=== PATIENT | female | born 1935 | race Caucasian/White ===

== ENCOUNTER 2023-04-22 11:14 | Observation (INO) | payer MEDICARE, BC ==
--- NOTE | 2023-04-22 11:47 | ED Physician Documentation ---
History of Present Illness - Stated complaint Stated Complaint: HIGH BP/VISION ISSUE - Chief complaint Chief Complaint: Heent - Additonal information Additional information: 87-year female presents emergency department for evaluation of vision changes and concerns of elevated blood pressure. Traveling to [facility] from [place]. States that on 08 April when she left [place] she had a mild headache that she did not put much thought into. On 15 April she had just finished brushing her teeth and when she looked into the mirror she states that her vision felt like she was looking through a slot machine. She did not have any l oss of vision. The slot machine sensation lasted 2 to 3 minutes before dissipating but since then she has had a color disturbance in both her eyes where she sees outlines and halos of blues and greens. She no longer has a headache. At this time she denies any chest pain, shortness of air, feeling lightheaded, dizzy. No falls or trauma. FAST exam is negative. NIHSS is 0. She did speak to her primary care doctor who advised her to come to the emergency department. Denies any history of VT, CVA or atrial fibrillation. Past medical history most significant for hypertension and hypercholesterolemia. She is not anticoagulated. No aspirin. Review of Systems Constitutional: denies: Fever Eyes: reports: Other (Visual halos) Ears: reports: Reviewed and negative Cardiac: reports: Reviewed and negative Respiratory: reports: Reviewed and negative GI: reports: Reviewed and negative : reports: Reviewed and negative Skin: reports: Reviewed and negative Musculoskeletal: reports: Reviewed and negative Neurologic: reports: Headache. denies: Generalized weakness, Focal weakness, Difficulty speaking, Syncope, Seizure, Altered mental status, Head injury, LOC Psychiatric: reports: Reviewed and negative PD PAST MEDICAL HISTORY - Allergies Allergies/Adverse Reactions: Allergies Allergy/AdvReac Type Severity Reaction Status Date / Time No Known Drug Allergies Allergy Verified 04/22/23 11:27 PD ED PE NORMAL - General General: Alert and oriented X 3, No acute distress, Well developed/nourished - HEENT HEENT: Atraumatic, PERRL, EOMI, Moist mucous membranes - Cardiac Cardiac: RRR, Strong equal pulses - Abdomen Abdomen: Normal bowel sounds, Soft, Non tender, Non distended - Neuro Neuro: Alert and oriented X 3, mold filling operator 2-12 intact Eye Opening: Spontaneous Motor: Obeys Commands Verbal: Oriented GCS Score: 15 - Psych Psych: Normal mood Results - Vitals Vitals: Vital Signs - 24 hr 04/22/23 04/22/23 11:17 13:19 Temperature 36.9 C Heart Rate 78 65 Respiratory 18 19 Rate Blood Pressure 150/77 H 142/84 H O2 Saturation 94 98 Oxygen O2 Source Room air - EKG (time done) 1149 EKG releavant findings:: EKG personally interpreted by author of this note. Relevant findings are: Rate: Rate (enter#) (69) Rhythm: NSR [place]: Anterior hemiblock Intervals: Normal WA. No: Prolonged QT QRS: LVH Ischemia: Q waves (v2-v5) Compare to prior EKG: Old EKG unavailable Computer interpretation: Agree with computer - Labs Labs: Laboratory Tests 04/22/23 04/22/23 04/22/23 11:49 11:49 11:49 WBC 7.4 RBC 4.57 Hgb 13.9 Hct 43.2 MCV 94.5 MCH 30.4 MCHC 32.2 RDW 13.8 Plt Count 346 MPV 9.9 Neut # (Auto) 4.3 Lymph # (Auto) 1.8 [place] # (Auto) 1.0 Eos # (Auto) 0.2 Baso # (Auto) 0.0 Absolute Nucleated RBC 0.00 Nucleated RBC % 0.0 PT 11.9 INR 1.1 Sodium 139 Potassium 3.9 Chloride 106 Carbon Dioxide 28 Anion Gap 5.0 L BUN 33 H Creatinine 0.9 Estimated GFR (MDRD) 59 L Glucose 117 H Calcium 9.6 Total Bilirubin 0.4 AST 13 ALT 12 Alkaline Phosphatase 74 Total Protein 7.3 Albumin 3.7 Globulin 3.6 Albumin/Globulin Ratio 1.0 Lipase 61 TSH 1.55 - Rads (name of study) cxr Relevant Findings:: Final report received (No acute cardiopulmonary findings) MRI brain Relevant Findings:: Final report received PD Medical Decision Making - ED course Complexity details: reviewed results, re-evaluated patient, considered differential, d/w patient ED course: 87-year-old female who is traveling to [facility] from [place] presents to the emergency department for 1 week of visual hallucinations and a brief episode of vision sensation that she is looking through a slot machine. The symptoms occurred on April 15 and the slot machine sensations abated after 2 to 3 minutes but she has persistently had since then, visual hallucination in both eyes where things are outlined in yellow and blue. There is no diplopia or loss of vision. All of the symptoms were preceded by a brief headache on April 08 when she was leaving [place], The headache was very brief and did not persist and has not returned since then. On presentation to the emergency department she is alert and rather well- appearing. FAST exam is negative. Her NIHSS is 0. Extraocular movements are preserved without any palsies noted. Subsequently I did obtain an EKG which per my interpretation was nonischemic. CBC, electrolytes and thyroid were all without acute worrisome findings. 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 The location of the subacute infarct would not seemingly be causative of her visual hallucinations. I did briefly speak on the phone with Dr. Sergio Campos an continuous improvement analyst who also stated that this is almost certainly not eye based given that the symptoms are present in both eyes. diferential still includes v isual migraine. interestingly no occipital infarct is seen on MRI Subsequently have spoken with Dr. Cummings who will bring the patient in for further work-up of the subacute infarct which will likely include an echo and carotid Dopplers. I discussed this finding and plan with the patient and her daughter and they are in agreement. Departure - Departure Disposition: ED Place in Observation Clinical Impression: Abnormal EKG, Acute stroke due to ischemia, Visual hallucinations Condition: Stable Comments: Your EKG today showed that you are in sinus rhythm. It however does have "Q waves" in the anterior leads which can be signs that you may have had a silent heart attack at some point in the past. When you return to [place] you do need to discuss this with your primary care doctor as you would likely benefit from referral to a project account manager. If you have not already been seen by one Forms: PCP List NIHSS - Time Time: 11:40 - Level of Consciousness Level of consciousness: (0) Alert, Keenly responsive LOC Questions: (0) Answers both Q's correct LOC Commands: (0) Performs both correctly - Gaze Best Gaze: (0) Normal - Visual Visual: (0) No loss - Facial Palsy Facial Palsy: (0) Normal, symmetrical movement - Motor Arms (both separate) Motor Arm (right): (0) No drift Motor Arm (left): (0) No drift - Motor Legs (both separate) Motor Leg (right): (0) No drift Motor Leg (left): (0) No drift - Limb Ataxia Limb Ataxia: (0) Absent - Sensory Sensory: (0) Normal - Best Language Best Language: (0) No aphasia - Dysarthria Dysarthria: (0) Normal - Extinction and Inattention (formally neg Extinction and inattention: (0) No abnormality - Total Score/Results Total Score/Result: 0
[2023-04-22 11:55] LABS: BASOPHILS % (AUTO) 0.3 %; EOSINOPHILS # (AUTO) 0.2 10^3/uL (0.0-0.7); EOSINOPHILS % (AUTO) 3.3 %; HCT - HEMATOCRIT 43.2 % (37.0-47.0); HGB - HEMOGLOBIN 13.9 g/dL (12.0-16.0); LYMPHOCYTES # (AUTO) 1.8 10^3/uL (1.5-3.5); LYMPHOCYTES % (AUTO) 24.9 %; MEAN CORPUSCULAR HEMOGLOBIN 30.4 pg (27.0-31.0); MEAN CORPUSCULAR HGB CONC 32.2 g/dL (32.0-36.0); MEAN CORPUSCULAR VOLUME 94.5 fL (81.0-99.0); MEAN PLATELET VOLUME 9.9 fL (7.9-10.8); NEUTROPHILS # (AUTO) 4.3 10^3/uL (1.5-6.6); NEUTROPHILS % (AUTO) 58.4 %; PLT - PLATELET COUNT 346 10^3/uL (130-450); RED BLOOD COUNT 4.57 10^6/uL (4.20-5.40); RED CELL DISTRIBUTION WIDTH 13.8 % (12.0-15.0); WHITE BLOOD COUNT 7.4 x10^3/uL (4.8-10.8)
[2023-04-22 12:03] LABS: INR 1.1 (0.8-1.2); PT - PROTHROMBIN TIME 11.9 secs (9.9-12.6)
[2023-04-22 12:10] LABS: ALBUMIN 3.7 g/dL (3.2-5.5); BILIRUBIN,TOTAL 0.4 mg/dL (0.2-1.0); CALCIUM 9.6 mg/dL (8.5-10.3); CREATININE 0.9 mg/dL (0.6-1.3); POTASSIUM 3.9 mmol/L (3.5-4.5); TOTAL PROTEIN 7.3 g/dL (6.4-8.9)
[2023-04-22 12:23] LABS: THYROID STIMULATING HORMONE 1.55 uIU/mL (0.34-5.60)
--- NOTE | 2023-04-22 12:49 | XRAY Report ---
PROCEDURE: Chest 1 View X-Ray INDICATIONS: Chest Pain TECHNIQUE: One view of the chest was acquired. COMPARISON: None. FINDINGS: Surgical changes and devices: None. Lungs and pleura: Prominent right hilum, indeterminate, possibly prominent vascular structures. No d ense consolidation or pleural effusion. Suspected basal scarring on the left. Mediastinum: Mediastinal contours appear normal. Heart size is normal. Bones and chest wall: No suspicious bony lesions. Overlying soft tissues appear unremarkable. IMPRESSION: No acute radiographic abnormality. Suspected scarring at the left lung base. Indeterminate prominent appearance of the right hilum. Reviewed by: Khanh Patten MD on 04/22/2023 12:48 PM PDT Approved by: Khanh Patten MD on 04/22/2023 12:48 PM PDT Station ID: [id number]
--- NOTE | 2023-04-22 14:01 | MRI Report ---
PROCEDURE: BRAIN WO INDICATIONS: visual aura > 1 week TECHNIQUE: Noncontrast axial T1 spin echo, axial T2 fast spin echo, sagittal and axial FLAIR, coronal T2 fast sp in echo, axial gradient echo, axial diffusion and ADC through the brain. COMPARISON: None. FINDINGS: Image quality: Motion artifact is noted. CSF Spaces: Basal cisterns are patent. No extra-axial fluid collections. Ventricles are normal in size and shape. Brain: Within the posterior aspect of the left parietal lobe, there is a focus of abnormal diffusion weighted signal seen, as on series 12 image 40 that measures 8 mm. Associated dark signal can be see n upon the ADC map. Developing T2-weighted signal can be seen at this site. No intracranial masses or hemorrhage. Longoria/white matter interface is normal. Brainstem appears norm al. No chronic ischemic insults. Normal intravascular flow voids are present. Prominent perivascul ar spaces are incidentally noted. Skull and face: Calvarium has normal marrow signal. Orbits appear normal. Incidental note is made of bilateral lens replacements. Sinuses: Sinuses and mastoids are clear. IMPRESSION: 8 mm focus of subacute infarction seen involving the posterior aspect of the left parietal lobe. Reviewed by: José Miguel Prabhakar MD on 04/22/2023 1:00 PM KASANDRA Approved by: José Miguel Prabhakar MD on 04/22/2023 1:00 PM KASANDRA Station ID: [id number]
[2023-04-22] MEDS ORDERED: SODIUM CHLORIDE FLUSH 0.9% 10 ML SYRINGE IVP PRN (15:07)
[2023-04-22] MEDS ORDERED: ONDANSETRON 4 MG/2 ML VIAL IVP PRN (15:07)
[2023-04-22] MEDS ORDERED: ACETAMINOPHEN 325 MG TABLET PO PRN (15:07)
--- NOTE | 2023-04-22 15:21 | HISTORY & PHYSICAL EXAMINATION ---
Chief Complaint - Chief Complaint Chief Complaint: Vision change History of Present Illness - Admitted From Admitted From:: ED - History Obtained From History obtained from: ED provider and the patient - History of Present Illness HPI Comment/Other: This is an 87-year-old female with a Hx of HTN, who is visiting here from [place]. Approximately 2 weeks ago, during the car trip, while in [place], she had a headache which is not normal for her. Approximately a week ago, in OR she had an episode of abnormal vision for 3 minutes that she described as if she was looking at a slot machine with red and black colors and bright lights. Ever since then she is more fatigued then normal. and she needs daytime naps. About 2 days after the slot machine, she is seeing large red and black spots on furniture or ceilings, only if she staeres at it, worse in the L eye than the R. She denies a history of glaucoma, amiodarone use, or chemotherapy use. She noticed that her blood pressure was somewhat higher recently. She called her PCP a few days ago and described these sx who advised that she go to an ER. Se got to [facility] today and she was brought to the ER here. Her blood pressure was not hypertensive. Her neuro exam was unremarkable. She did undergo an MRI of the head that showed a subacute left parietal stroke. The ED provider reached out to the shank archer who felt that because the symptoms are in both eyes, this was not an ocular or retinal problem. The ED provider then spoke to me about this patient. She will be placed into Observation status to evaluate for causes of a stroke. History - Past Medical History Cardiovascular: reports: Hypertension, High cholesterol Respiratory: reports: None Neuro: reports: None Endocrine/Autoimmune: reports: None TRAFFIC ADMINISTRATOR: reports: None : reports: None HEENT: reports: None Psych: reports: None Musculoskeletal: reports: None Derm: reports: None - Past Surgical History General: reports: Appendectomy Ortho: reports: Knee replacement (bilat), Rotator cuff repair (bilat), Other (R ankle rods & pins) /TRAFFIC ADMINISTRATOR: reports: Hysterectomy - Family & Social History Living arrangement: At home Living Situation: With family Social History Notes: 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. She never smoked. She drinks no alcohol. She uses no illicit drugs. - Substance History Use: Uses substance without health or social issues: NONE Meds/Allgy - Home Medications Home Medications: Ambulatory Orders Medication Instructions Recorded Confirmed Atorvastatin [Lipitor] 10 mg PO DAILY 04/22/23 Celecoxib [Celebrex] 200 mg PO DAILY 04/22/23 Losartan/Hydrochlorothiazide 1 tab PO DAILY 04/22/23 [Hyzaar 50-12.5 Tablet] Metoprolol Succinate [Toprol Xl] 25 mg PO ONCE 04/22/23 - Allergies Allergies/Adverse Reactions: Allergies Allergy/AdvReac Type Severity Reaction Status Date / Time No Known Drug Allergies Allergy Verified 04/22/23 11:27 Review of Systems - Eyes Eyes: reports: Spots in vision - Musculoskeletal Musculoskeletal: reports: Other (LBP and R shoulder pain) - Neurological Neurological: reports: Other (Vision problems as in HPI) Exam - Vital Signs Vital Signs: Vital Signs x48h Temp Pulse Resp BP Pulse Ox 04/22/23 13:19 65 19 142/84 H 98 04/22/23 11:17 36.9 C 78 18 150/77 H 94 - Physical Exam General Appearance: positive: No acute distress, Alert Eyes Bilateral: positive: Normal inspection, EOMI ENT: positive: ENT inspection nml, No signs of dehydration Neck: positive: Nml inspection, No JVD, Other (No carotid bruits) Respiratory: positive: No respiratory distress, Breath sounds nml Cardiovascular: positive: Regular rate & rhythm, No murmur Abdomen: positive: Non-tender, Nml bowel sounds, No distention Skin: positive: Warm, Dry, Other (Well tanned, heavily wrinkled skin) Extremities: positive: Non-tender, No pedal edema Neurologic/Psychiatric: positive: Oriented x3, Motor nml, Sensation nml Conclusion/Plan - Problem List (1) Acute stroke due to ischemia Conclusion/Plan: Her persistent symptom is the abnormal colors in her vision. The brain imaging shows a subacute stroke in the left parietal region. The ED provider told me that there was no neuro stroke consult done when she was in the ED Plan: We will obtain angio of the brain using MRA. We will obtain carotid Dopplers to evaluate for plaque We will obtain an Echo with bubble study to look for cardiac source of embolus or PFO Place on telemetry to watch for A-fib Neuro-checks q4h We will start her on daily baby aspirin and daily Plavix. Fasting lipid panel also ordered. Target LDL be less than 70 and patient with a stroke. Will request PT and OT evals to see if her sx impact her ADLs (2) HTN (hypertension) Conclusion/Plan: The patient was on lisinopril/HCTZ as well as Toprol for her BP control Plan: Low sodium diet ordered We will allow for permissive hypertension We will resume her BP meds after the list is reconciled and when appropriate in her course (3) Abnormal EKG Conclusion/Plan: Patient has deep QS waves in V1 and V2 which look like she has had an anteroseptal HI Plan: Echocardiogram will reveal if she has resting wall motion abnormalities She will need work-up for CAD urgently when she returns to [place] We will start the baby aspirin daily. Fasting lipid panel also ordered - Lab Results Fish Bones: 04/22/23 11:49 04/22/23 11:49
[2023-04-22] MEDS: SODIUM CHLORIDE FLUSH 0.9% 10 ML SYRINGE IVP SCH (19:10)
[2023-04-22] MEDS: CLOPIDOGREL 75 MG TABLET PO SCH (19:11)
[2023-04-22] MEDS: ASPIRIN EC 81 MG TABLET PO SCH (19:11)
--- NOTE | 2023-04-22 19:27 | MRI Report ---
PROCEDURE: ANGIO HEAD WO INDICATIONS: Subacute stroke TECHNIQUE: Noncontrast axial 3-D [id number] MR angiogram, with 3-dimensional maximum intensity projection (M IP) reformats of the internal carotid arteries and posterior circulation then performed. COMPARISON: MRI from today FINDINGS: Image quality: Excellent. Anterior circulation: Intracranial internal carotid arteries demonstrate normal size and intralumina l flow signal. The flow within the paired anterior cerebral arteries is normal and symmetric. The f low within the middle cerebral arteries is normal and symmetric. The anterior communicating artery i s seen. No stenoses, occlusions, or aneurysms. Posterior circulation: Visualized portions of the vertebral arteries demonstrate normal caliber, and join to form a normal appearing basilar artery. The flow within the posterior cerebral arteries is normal and symmetric. No stenoses, occlusions, or aneurysms. IMPRESSION: No large vessel occlusion. Reviewed by: Thee Ceja on 04/22/2023 7:26 PM PDT Approved by: Thee Ceja on 04/22/2023 7:26 PM PDT Station ID: [id number]
[2023-04-23] MEDS: SODIUM CHLORIDE FLUSH 0.9% 10 ML SYRINGE IVP SCH ×2 (00:21→08:35)
[2023-04-23 05:04] LABS: BUN - BLOOD UREA NITROGEN 23 mg/dL (6-20); CALCIUM 9.5 mg/dL (8.5-10.3); CARBON DIOXIDE - CO2 29 mmol/L (21-32); CHLORIDE 106 mmol/L (101-111); CHOL/HDL RATIO 2.7 (<4.4); CHOLESTEROL 120 mg/dL; CREATININE 0.8 mg/dL (0.6-1.3); GFR - MDRD 68 (>89); GLUCOSE 98 mg/dL (74-104); HDL CHOLESTEROL 45 mg/dL; LDL CHOLESTEROL,CALCULATED 51 mg/dL; LDL/HDL RATIO 1.1 (<4.4); POTASSIUM 3.7 mmol/L (3.5-4.5); SODIUM 139 mmol/L (135-145); TRIGLYCERIDES 121 mg/dL (48-352); VLDL CHOLESTEROL 24 mg/dL
[2023-04-23] MEDS: CLOPIDOGREL 75 MG TABLET PO SCH (08:34)
[2023-04-23] MEDS: ASPIRIN EC 81 MG TABLET PO SCH (08:34)
--- NOTE | 2023-04-23 09:17 | Ultrasound Report ---
PROCEDURE: Carotid Doppler Complete INDICATIONS: CVA TECHNIQUE: Color and pulse Doppler interrogation was performed of both carotid systems, with image documentation and velocity measurements. COMPARISON: None. FINDINGS: Right side: Brachial blood pressure: 136/98 mm Hg. Common carotid artery peak systolic velocity: 44 cm/sec. Internal carotid artery peak systolic velocity: 64 cm/sec. Internal carotid artery end diastolic velocity: 22 cm/sec. External carotid artery peak systolic velocity: 57 cm/sec. ICA/CCA peak systolic ratio: 1.4 . Longoria scale imaging description: No significant atherosclerotic plaque. Percent internal carotid artery stenosis: No hemodynamically significant stenosis. Vertebral artery: Flow direction is antegrade. Left side: Brachial blood pressure: 164/104 mm Hg. Common carotid artery peak systolic velocity: 46 cm/sec. Internal carotid artery peak systolic velocity: 71 cm/sec. Internal carotid artery end diastolic velocity: 18 cm/sec. External carotid artery peak systolic velocity: 54 cm/sec. ICA/CCA peak systolic ratio: 1.5 . Longoria scale imaging description: No significant atherosclerotic plaque. Percent internal carotid artery stenosis: No hemodynamically significant stenosis. Vertebral artery: Flow direction is antegrade. IMPRESSION: 1. In the right internal carotid artery, there is no hemodynamically significant stenosis based on pe ak systolic velocity criteria. 2. In the left internal carotid artery, there is no hemodynamically significant stenosis based on pea k systolic velocity criteria. 3. Antegrade blood flow within the right vertebral artery. 4. Antegrade blood flow within the left vertebral artery. The estimate of stenosis included in the report of the imaging study was calculated using the [facility]-end orsed standards of carotid artery stenosis. Reviewed by: Larry Pacheco on 04/23/2023 9:16 AM PDT Approved by: Larry Pacheco on 04/23/2023 9:16 AM PDT Station ID: [id number]
--- NOTE | 2023-04-23 10:04 | Discharge Plan ---
Discharge Plan Problem Reviewed?: Yes Disposition: Home, Self Care Condition: Fair Prescriptions: Aspirin EC [Ecotrin] 81 mg PO DAILY #30 tab Clopidogrel [Plavix] 75 mg PO DAILY #21 tablet Diet: Cardiac (Please eat a low cholesterol, low salt diet) Activity Restrictions: Activity as Tolerated Shower Restrictions: No Driving Restrictions: Yes (Due to abnormal vision, you should no longer drive a vehicle) Instruction Topics: Clopidogrel Bisulfate Oral tablet Health Concerns: You were hospitalized to evaluate your abnormal vision. We found that you had a stroke, which was recent. We did not find a clot or blocked arteries to explain the stroke however. Because you still have continued abnormal vision, you should also be seen by an Residential Caregiver. It is now advised that you no longer drive a vehicle or operate heavy machinery, because of the stroke. You are being discharged home on treatment for a stroke, which is 1 baby aspirin daily for the rest of your life, and Plavix once daily for 3 weeks. You can buy [id number], enteric-coated aspirin or get the prescription baby aspirin that was ordered. The Plavix prescription was sent to the [facility] pharmacy in [place]. You need to stop taking the Celebrex while you are on the aspirin and Plavix, due to risk of getting a bleeding ulcer. Please use Tylenol for pain control. Also, the vitamin C, being acidic, should not be taken when you are on the aspirin and Plavix. You should continue taking your usual medicines for blood pressure and for high cholesterol, which are controlling the blood pressure and the cholesterol well. You need follow-up with your primary care doctor in [place], regarding the stroke, when to resume driving, and when to resume Celebrex. Plan of Treatment: As above. Care Goals: Improvement in symptoms and stabilization are the goals. Assessment: The patient understands and is agreeable with the plan. Additional Instructions or Follow Up instructions: Your EKG today showed that you are in sinus rhythm. It however does have "Q waves" in the anterior leads which can be signs that you may have had a silent heart attack at some point in the past. When you return to [place] you do need to discuss this with your primary care doctor as you would likely benefit from referral to a embossing unit operator. If you have not already been seen by one No Smoking: If you smoke, Please STOP! Call for help.
--- NOTE | 2023-04-23 12:09 | PHARMACY PROGRESS NOTE ---
- Best Possible Medication History Admit Date and Time: 04/22/23 1507 Processed by: Pharmacy Medication History completed: Yes Patient Interview: Completed Secondary Source(s): Prescription bottles As the person ultimately responsible for medication therapy, providers are able to order a medication from an existing home medication list in [facility] via the "Reconcile Routine" prior to Confirmation of that medication by student support advisor. Such practice is discouraged except when the physician, in their clinical judgment, deems that a medical need exists for a medication without regard to previous use.
[2023-04-23 12:11] VITALS: O2SAT 94
--- NOTE | 2023-04-23 12:53 | DISCHARGE SUMMARY ---
Discharge Summary Admit Date: 04/22/23 Discharge Date: 04/23/23 Discharging Provider: Dr Jocelyn Cummings Primary Care Provider: Dr Josi Wesley, [place], [place] Condition at Discharge: Fair Discharge Disposition: 01 Home, Self Care - HPI History of Present Illness: This is an 87-year-old female with a Hx of HTN, who is visiting here from [place]. Approximately 2 weeks ago, during the car trip, while in [place], she had a headache which is not normal for her. Approximately a week ago, in [place] she had an episode of abnormal vision for 3 minutes that she described as if she was looking at a slot machine with red and black colors and bright lights. Ever since then she is more fatigued then normal. and she needs daytime naps. About 2 days after the slot machine, she is seeing large red and black spots on furniture or ceilings, only if she staeres at it, worse in the L eye than the R. She denies a history of glaucoma, amiodarone use, or chemotherapy use. She noticed that her blood pressure was somewhat higher recently. She called her PCP a few days ago and described these sx who advised that she go to an ER. Se got to [facility] today and she was brought to the ER here. Her blood pressure was not hypertensive. Her neuro exam was unremarkable. She did undergo an MRI of the head that showed a subacute left parietal stroke. The ED provider reached out to the gauge maker who felt that because the symptoms are in both eyes, this was not an ocular or retinal problem. The ED provider then spoke to me about this patient. She will be placed into Observation status to evaluate for causes of a stroke. - HOSPITAL COURSE Hospital Course: (1) Acute stroke due to ischemia The brain imaging shows a subacute stroke in the left parietal region. She was placed in Observation to evaluate for causes of the CVA. She had a MRI brain which did not show any occlusions or aneurysms. She had a complete echocardiogram with bubble study which showed normal LVEF, no intracardiac clot and no PFO. She had bilateral carotid Dopplers which showed no significant stenoses. She was monitored on telemetry, and we saw no episodes of atrial fib. Fasting lipid panel returned showing an LDL of 51 on her statin med (target LDL < 70 in a patient with a stroke). She had neurochecks done every 4 hours and nothing changed or worsened. She was seen by PT and OT who documented that she has poor balance and was impulsive, but the patient said that these were present before the stroke. She was put on daily baby aspirin and advised to take this lifelong. She was also started on Plavix 75 mg daily and advised to take this for 21 days. While on aspirin and Plavix, she was advised not to take Celebrex, for risk of gastric ulcer and bleeding. She was advised she should not be driving due to the recent stroke until OKd to do so by her doctor. She needs follow-up with her PCP after return to [place]. (2) Visual hallucinations Her persistent symptom is the abnormal colors in her vision, and "hypervision" (she can see details such as dots in the ceiling tiles). An evaluation by Ophthalmology was advised. (3) HTN (hypertension) The patient was on Lisinopril/HCTZ as well as Toprol for her BP control, and these should be continued - ALLERGIES Allergies/Adverse Reactions: Allergies Allergy/AdvReac Type Severity Reaction Status Date / Time No Known Drug Allergies Allergy Verified 04/22/23 11:27 - MEDICATIONS Home Medications: Ambulatory Orders Medication Instructions Recorded Confirmed Atorvastatin [Lipitor] 10 mg PO DAILY 04/22/23 04/23/23 Losartan/Hydrochlorothiazide 1 tab PO DAILY 04/22/23 04/23/23 [Hyzaar 50-12.5 Tablet] Metoprolol Succinate [Toprol Xl] 25 mg PO ONCE 04/22/23 04/23/23 Aspirin EC [Ecotrin] 81 mg PO DAILY #30 tab 04/23/23 Cholecalciferol (Vitamin D3) 50 mcg PO DAILY 04/23/23 04/23/23 [Vitamin D3] Clopidogrel [Plavix] 75 mg PO DAILY #21 tablet 04/23/23 Cyanocobalamin (Vitamin B-12) 1,000 mcg PO DAILY 04/23/23 04/23/23 [Vitamin B-12] Diclofenac Sodium 1% Gel [Voltaren 1 g TOP 1-2XD PRN 04/23/23 04/23/23 Gel] Ubidecarenone [Co Q-10] 100 mg PO DAILY 04/23/23 04/23/23 - PHYSICAL EXAM AT DISCHARGE General Appearance: positive: No acute distress, Alert Eyes Bilateral: positive: Normal inspection, EOMI ENT: positive: ENT inspection nml, No signs of dehydration Neck: positive: Nml inspection, No JVD Respiratory: positive: No respiratory distress, Breath sounds nml Cardiovascular: positive: Regular rate & rhythm, No murmur Abdomen: positive: Non-tender, Nml bowel sounds, No distention Skin: positive: Warm, Dry Extremities: positive: Non-tender, No pedal edema Neurologic/Psychiatric: positive: Oriented x3, Motor nml, Other (Has some slight word finding difficulty and the vision problem) - LABS Result Diagrams: 04/22/23 11:49 04/23/23 04:12 - FOLLOW UP Follow Up: See PCP Dr. Josi Wesley after return to [place]. also needs to be evaluated by Ophthalmology. - TIME SPENT Time Spent in Discharge (Minutes): 30
[2023-04-23] MEDS ORDERED: METOPROLOL SUCCINATE 25 MG TABLET PO SCH (14:00)
[2023-04-23 18:22] VITALS: BP 118/49
[2023-04-24] MEDS ORDERED: HYDROCHLOROTHIAZIDE PO SCH (09:00)
[2023-04-24] MEDS ORDERED: CHOLECALCIFEROL 25 MCG TABLET PO SCH (09:00)
[2023-04-24] MEDS ORDERED: hydroCHLOROthiazide 25 MG TABLET PO SCH (09:00)
[2023-04-24] MEDS ORDERED: ATORVASTATIN 10 MG TABLET PO SCH (09:00)
[2023-04-24] MEDS ORDERED: UBIDECARENONE 100 MG PO SCH (09:00)
[2023-04-24] MEDS ORDERED: CYANOCOBALAMIN 500 MCG TABLET PO SCH (09:00)
[2023-04-24] MEDS ORDERED: LOSARTAN PO SCH (09:00)
[2023-04-24] MEDS ORDERED: LOSARTAN 50 MG TABLET PO SCH (09:00)
== END 2023-04-23 14:02 | disposition home or self-care (01) ==
LOC: ED 11:14 → MS2 15:07
PROVIDERS: ADMIT Internal Medicine; ATTEND Internal Medicine
DX: I63.9 Cerebral infarction, unspecified (principal); H53.19 Other subjective visual disturbances; R29.700 NIHSS score 0; I10 Essential (primary) hypertension; E78.00 Pure hypercholesterolemia, unspecified; M25.511 Pain in right shoulder; M54.50 Low back pain, unspecified; R07.9 Chest pain, unspecified; R51.9 Headache, unspecified; R94.31 Abnormal electrocardiogram [ECG] [EKG]; Z79.899 Other long term (current) drug therapy; Z90.710 Acquired absence of both cervix and uterus; Z96.653 Presence of artificial knee joint, bilateral
CPT/HCPCS: 36415; 70544; 70551; 71045; 80048; 80053; 80061; 83690; 84443; 85025; 85610; 93005; 93306; 93880; 97161; 97165; 99285; A9270; G0378; 83721

== ENCOUNTER 2023-04-27 10:59 | Emergency (ER) | payer MEDICARE, BC ==
[2023-04-27 11:26] VITALS: BP 140/102; O2SAT 96
--- NOTE | 2023-04-27 12:01 | ED Physician Documentation ---
PD HPI OPHTHO - Stated complaint Stated Complaint: HEAD PRESSURE - Chief complaint Chief Complaint: Heent - History obtained from History obtained from: Patient - Additional information Additional information: Patient is an 87-year-old female with recent diagnosis of a subacute parietal stroke and vision abnormalities presenting for evaluation of a brief period of irritation feeling in her left eye when she woke up this morning. Patient states that her irritation lasted for a few seconds and went away after she rubbed her eye. She continues to report changes to her vision since being discharged from the hospital but denies that they have changed in any way over the past several days. She describes it as a fuzzy film in the middle of her visual field that has been there again since her recent hospitalization. She denies a headache. She has been compliant with her aspirin and Plavix. Patient reports feeling concerned as she is just had a stroke and was not sure if her eye irritation this morning could be related to that. Review of Systems Constitutional: denies: Fever Cardiac: denies: Chest pain / pressure Respiratory: denies: Dyspnea GI: denies: Abdominal Pain Neurologic: denies: Headache PD PAST MEDICAL HISTORY - Past Medical History Past Medical History: Yes Cardiovascular: Hypertension, High cholesterol Respiratory: None Neuro: None Endocrine/Autoimmune: None LICENSED OPTICAL DISPENSER: None : None HEENT: None Psych: None Musculoskeletal: None Derm: None - Past Surgical History Past Surgical History: Yes General: Appendectomy Ortho: Knee replacement, Rotator cuff repair, Other /LICENSED OPTICAL DISPENSER: Hysterectomy HEENT: Cataracts, Tonsil/Adenoidectomy - Present Medications Home Medications: Ambulatory Orders Medication Instructions Recorded Confirmed Atorvastatin [Lipitor] 10 mg PO DAILY 04/22/23 04/23/23 Losartan/Hydrochlorothiazide 1 tab PO DAILY 04/22/23 04/23/23 [Hyzaar 50-12.5 Tablet] Metoprolol Succinate [Toprol Xl] 25 mg PO DAILY 04/22/23 04/23/23 Aspirin EC [Ecotrin] 81 mg PO DAILY #30 tab 04/23/23 Cholecalciferol (Vitamin D3) 50 mcg PO DAILY 04/23/23 04/23/23 [Vitamin D3] Clopidogrel [Plavix] 75 mg PO DAILY #21 tablet 04/23/23 Cyanocobalamin (Vitamin B-12) 1,000 mcg PO DAILY 04/23/23 04/23/23 [Vitamin B-12] Diclofenac Sodium 1% Gel [Voltaren 1 g TOP 1-2XD PRN 04/23/23 04/23/23 Gel] Ubidecarenone [Co Q-10] 100 mg PO DAILY 04/23/23 04/23/23 - Allergies Allergies/Adverse Reactions: Allergies Allergy/AdvReac Type Severity Reaction Status Date / Time No Known Drug Allergies Allergy Verified 04/22/23 11:27 - Social History Does the pt smoke?: No Smoking Status: Never smoker PD ED PE NORMAL - General General: Alert and oriented X 3, No acute distress, Well developed/nourished - HEENT HEENT: Atraumatic, PERRL, EOMI, Moist mucous membranes, Pharynx benign - Neck Neck: Supple, no meningeal sign - Cardiac Cardiac: RRR, No murmur - Respiratory Respiratory: No respiratory distress, Clear bilaterally - Derm Derm: Warm and dry - Neuro Neuro: Alert and oriented X 3, No motor deficit, Normal speech PD ED PE EXPANDED - Eyes Eyes: PERRL, EOMI, Normal eyelids, No eyelid FB (everted), Nl conjunctiva/sclera, Normal corneas, Anterior chambers clear, Other (IOP 18, 20 L eye). No: Injected conj/sclera, Fluorescein uptake Results - Vitals Vitals: Vital Signs - 24 hr 04/27/23 11:05 Temperature 36.7 C Heart Rate 81 Respiratory 20 Rate Blood Pressure 140/102 H O2 Saturation 96 Oxygen O2 Source Room air PD Medical Decision Making - ED course ED course: Patient is an 87-year-old female presenting for evaluation of eye irritation that was brief lasting a few seconds this morning and has since resolved. Patient reports being concerned as she recently was admitted after vision issues and found to have a subacute parietal infarct. Patient denies any other changes to her vision issues in the past several days. She has not seen an softball player yet. Her symptoms from this morning have resolved. She had no headache. She has no signs of corneal abrasion or ulcer, no signs of infection. She is no signs of increased intraocular pressure. Patient was counseled on need for close ophthalmology follow-up as she was directed to have a discharge earlier this week. She is also counseled on concerning symptoms to return for. Departure - Departure Disposition: 01 Home, Self Care Clinical Impression: Left eye pain Condition: Stable Follow-Up: Sergio Campos MD [Provider Admit Priv/Credential] - Within 3 Days Comments: It is unclear what caused her to have pain in your left eye this morning for a few seconds. But at this time I do not see signs of an infection, scratched your cornea or increased pressure in your eye. I have included the name of a local softball player I would recommend you have follow-up with given your recent stroke. Please return to the emergency department with any new or worsening symptoms. Continue with your medications that you were prescribed at discharge. Forms: PCP List Discharge Date/Time: 04/27/23 12:18
== END 2023-04-27 12:18 | disposition home or self-care (01) ==
LOC: ED 10:59
DX: H57.12 Ocular pain, left eye (principal); I10 Essential (primary) hypertension; Z79.82 Long term (current) use of aspirin; Z79.02 Long term (current) use of antithrombotics/antiplatelets; Z79.899 Other long term (current) drug therapy
CPT/HCPCS: 99282; 99283